=== PATIENT | male | born 1960 | race Caucasian/White ===

== ENCOUNTER 2018-12-10 11:00 | Emergency (ER) | payer OTHER ==
[~2018-12-10] VITALS: Ht 154.9 cm; Wt 62.0 kg
[2018-12-10 11:00] VITALS: BP 135/84
[2018-12-10] MEDS ORDERED: CYCL-1 PO (13:35)
== END 2018-12-10 13:43 | disposition home or self-care (01) ==
LOC: ER 11:00
DX: S13.4XXA Sprain of ligaments of cervical spine, initial encounter (principal); M50.31 Other cervical disc degeneration, high cervical region; M25.511 Pain in right shoulder; Z56.0 Unemployment, unspecified; V89.2XXA Person injured in unspecified motor-vehicle accident, traffic, initial encounter; Y93.89 Activity, other specified; Y92.488 Other paved roadways as the place of occurrence of the external cause; Y99.8 Other external cause status
CPT/HCPCS: 72040; 99283